=== PATIENT | female | born 2000 | race Caucasian/White ===

== ENCOUNTER 2022-01-06 11:50 | Observation (INO) ==
[2022-01-06] MEDS ORDERED: SODIUM CHLORIDE 0.9% 1000ML 1,000 ML IV ONE (12:28)
[2022-01-06] MEDS ORDERED: HYDROmorphone INJ 1 MG/ML SYRINGE IV STA ×3 (12:28→15:56)
[2022-01-06] MEDS ORDERED: ONDANSETRON INJ 2 MG/ML 2 ML VIAL IV STA (12:28)
--- NOTE | 2022-01-06 12:48 | Emergency Department Note ---
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 Patient notes she had been doing well up until about 3 to 4 weeks ago with gradually worsening abdominal pain in the last few days that was severe diffuse abdominal pain and vomiting. No recent imaging and given the amount of pain I did feel was indicated to get a CTA of the abdomen pelvis. Fortunately CT imaging is unremarkable. Laboratory work-up is negative as well. There is no evidence of inflammatory issue nor infection at this time. Do not see any evidence of sepsis pyelonephritis or other concerning findings. With a negative CTA I do not feel there is evidence of ischemia nor she requires emergent surgical intervention. She did require multiple rounds of IV narcotics initially to get her pain under control. I discussed the case with her surgeon at [place] Dr. Harrison via the phone at the patient's request who reviewed the case and the imaging with me. He suggests some bowel rest and possibly getting a HIDA scan if possible. Agreed with current management approach. Due to her level pain initially and her history I discussed with hospitalist for further management and they will bring her in for further monitoring. Patient is comfortable this plan. Did offer to call the patient's mother as she had apparently called the ER and talk to the nurse earlier though patient declines needing this to happen at this time. I made hospitalist aware of input of surgeon. Patient is stable and actually looks much per improved at time of hospitalization Prior Medical Record and Triage/Nursing Notes reviewed by Me Additional history obtained from surgeon Differentials:Appendicitis, ischemia, bleed, inflammatory bowel disease, urinary infection/pyelonephritis, aortic pathology, obstruction, renal colic, amongst other. Vital Signs: reviewed and remarkable for no significant abnormalities Interventions: dilaudid 1mg iv x 3, zofran 4mg iv, nss bolus Labs:Reviewed and remarkable for no significant abnormalities Imaging:ct angio abdomen/pelvis: no acute findings per radiology Consults:Dr Harrison [facility] surgeon Dr Chao [place] Hospitalist Plan: Disposition:Hospitalization. Condition: Good History of Present Illness: 21-year-old female arrives for evaluation of abdominal pain. Patient with a long history of abdominal issues resulting in multiple surgeries back home in [facility]. She notes this was primarily due to vascular issues due to nutcracker syndrome decreased blood flow to her bowel as well as some decreased blood flow return issues due to pelvic congestion. She is also in the last 2 years had movement of her left kidney to lower in the pelvis to help with blood flow as well. Notes over the last month gradually worsening diffuse abdominal pain rapidly worsening the last few days. Associate with nausea, vomiting, diarrhea. No fevers, chills, chest pain, shortness of breath, other concerning signs or symptoms. She does have near syncopal episodes which occur fairly regularly which have been going on for quite some time. Using Tylenol without much improvement. No falls, trauma, injuries. ROS: See above HPI for pertinent positives & negatives. A total of 10 systems reviewed and were otherwise negative. Past Medical History:Arterial and venous issues of the abdomen Past Surgical History:Multiple abdominal surgeries Family History:Noncontributory Social History:From [facility], [employer] student Home Medications:Venlafaxine Allergies:No known drug allergies Vitals:Blood Pressure: 137/82, Pulse 97, RR 18, T 36.6C, O2 96% on RA Physical Exam: GENERAL: Patient is uncomfortable appearing and in moderate distress. EYES: No scleral icterus, unremarkable pupils. ENT: Mucous membranes moist, no nasal congestion. NECK: No masses appreciated, nomeningismus, trachea is midline. RESPIRATORY: No dyspnea. Clear to auscultation and equal bilaterally. No wheeze, no rhonchi. CARDIOVASCULAR: Regular rate and rhythm.No murmurs, rubs, gallops appreciated. GASTROINTESTINAL: Midline vertical incision scar, diffuse TTP, + bowel sounds BACK: No midline tenderness, no CVA tenderness EXTREMITIES: Normal motion all extremities, no cyanosis, no edema. NEUROLOGIC: Alert and oriented, no acute motor or sensory deficits, no focal weakness, cranial nerves grossly intact. SKIN: No rash, no jaundice, no diaphoresis. PSYCH: Appropriate GCS: 15 ED Course: Times/Reassessments: Tachycardia consider amount of time to get patient finally comfortable after few hours patient is stable no distress looks well. Work-up is essentially benign. Her surgeon is on board with keeping her at this facility for hydration monitoring overnight and possible HIDA scan in the morning. Hospitalist and see if further Jose Angel Jarvis MD Past Med/Surg History Social History Feels Safe at Home: Yes Home Meds Home Medications Medication Instructions Recorded Confirmed penicillin V potassium 500 mg 500 mg PO DAILY 01/06/22 01/06/22 tablet Results & Data (ED) Vital Signs Vital Signs - 24 hr 01/06/22 11:56 01/06/22 14:13 01/06/22 16:09 Temperature 36.6 C Temperature Source Temporal Artery Scan Pulse Rate 97 H Pulse Rate [Right Apical] 59 L 73 Pulse Rhythm [Right Apical] Regular Regular Pulse Strength [Right Apical] Normal Respiratory Rate 18 16 20 Respiratory Effort / Characteristics Non-Labored Spontaneous Respiratory Depth Normal Respiratory Pattern Regular Blood Pressure 137/82 Blood Pressure [Right Arm] 129/77 136/88 Blood Pressure Mean 100 Blood Pressure Mean [Right Arm] 94 104 Blood Pressure Position [Right Arm] Sitting Pulse Oximetry 96 96 96 Oxygen Delivery Method Room Air Room Air Room Air Sepsis Recent Fever Within 48 Hours No Sepsis New/Unexplained Change in Mental Status No Sepsis Action Taken by Nursing No Action Required 01/06/22 18:00 01/06/22 18:30 Temperature Temperature Source Pulse Rate Pulse Rate [Right Apical] 73 83 Pulse Rhythm [Right Apical] Regular Regular Pulse Strength [Right Apical] Normal Normal Respiratory Rate 20 20 Respiratory Effort / Characteristics Non-Labored Spontaneous Non-Labored Spontaneous Respiratory Depth Normal Normal Respiratory Pattern Regular Regular Blood Pressure Blood Pressure [Right Arm] 132/79 123/70 Blood Pressure Mean Blood Pressure Mean [Right Arm] 96 87 Blood Pressure Position [Right Arm] Sitting Sitting Pulse Oximetry 97 97 Oxygen Delivery Method Room Air Room Air Sepsis Recent Fever Within 48 Hours Sepsis New/Unexplained Change in Mental Status Sepsis Action Taken by Nursing Laboratory Data Result diagrams: 01/06/22 12:35 01/06/22 12:35 Lab Results 01/06/22 01/06/22 01/06/22 Range/Units 12:35 12:35 12:35 WBC 6.18 (4.8-10.8) K/ul RBC 4.18 (3.93-5.22) M/uL Hgb 12.8 (12.0-16.0) g/dl Hct 38.7 (34.1-44.9) % MCV 92.6 (80.0-100.0) fL MCH 30.6 (25.0-34.0) pg MCHC 33.1 (32.0-36.0) g/dL RDW Std Deviation 39.7 (36.4-46.3) fL RDW Coeff of Abad 11.7 (11.5-14.5) % Plt Count 268 (130-400) K/uL MPV 10.4 (9.4-12.3) fL Immature Gran % (Auto) 0.3 % Neut % (Auto) 66.4 % Lymph % (Auto) 22.8 % [place] % (Auto) 7.6 % Eos % (Auto) 2.1 % Baso % (Auto) 0.8 % Neut # (Auto) 4.10 (1.4-6.5) K/uL Lymph # (Auto) 1.41 (1.2-3.4) K/uL [place] # (Auto) 0.47 (0.24-0.82) K/uL Eos # (Auto) 0.13 (0-0.50) K/uL Baso # (Auto) 0.05 (0-0.2) K/uL Immature Gran # (Auto) 0.02 (0.00-0.02) K/uL ESR (0-20) mm/hr Sodium 138 (136-145) mmol/L Potassium 4.1 (3.5-5.1) mmol/L Chloride 105 (98-107) mmol/L Carbon Dioxide 29 (21-32) mmol/L Anion Gap 4 (3-11) BUN 17 (6-23) mg/dl Creatinine 0.79 (0.6-1.2) mg/dl Est Cr Clr Drug Dosing Not Reportable Est GFR ( Amer) 125.8 ml/min Est GFR (Non-Af Amer) 108.5 ml/min BUN/Creatinine Ratio 21.5 H (10-20) Glucose 100 H (70-99(Fasting)) mg/dl Lactate 0.8 (0.4-2.0) mmol/L Calcium 9.4 (8.5-10.1) mg/dl Magnesium 2.1 (1.7-2.4) mg/dl Total Bilirubin 0.3 (0.2-1.0) mg/dl Direct Bilirubin 0.0 (0-0.2) mg/dl AST 23 (13-39) U/L ALT 26 (7-52) U/L Alkaline Phosphatase 59 (34-104) U/L Total Creatine Kinase 203 H (26-192) U/L C-Reactive Protein (0-0.5) mg/dl Total Protein 7.0 (6.0-8.3) gm/dl Albumin 4.5 (3.4-5.0) gm/dl Lipase 21 (11-82) U/L Urine Color Urine Appearance (Clear) Urine pH (4.5-7.5) Ur Specific [place] (1.000-1.030) Urine Protein (Negative) Urine Glucose (UA) (Negative) Urine Ketones (Negative) Urine Blood (Negative) Urine Nitrite (Negative) Urine Bilirubin (Negative) Urine Urobilinogen (Negative) Ur Leukocyte Esterase (Negative) Urine Test (Negative) SARS-CoV-2, RNA, NAAT (NEGATIVE) 01/06/22 01/06/22 01/06/22 Range/Units 12:35 12:35 12:40 WBC (4.8-10.8) K/ul RBC (3.93-5.22) M/uL Hgb (12.0-16.0) g/dl Hct (34.1-44.9) % MCV (80.0-100.0) fL MCH (25.0-34.0) pg MCHC (32.0-36.0) g/dL RDW Std Deviation (36.4-46.3) fL RDW Coeff of Abad (11.5-14.5) % Plt Count (130-400) K/uL MPV (9.4-12.3) fL Immature Gran % (Auto) % Neut % (Auto) % Lymph % (Auto) % [place] % (Auto) % Eos % (Auto) % Baso % (Auto) % Neut # (Auto) (1.4-6.5) K/uL Lymph # (Auto) (1.2-3.4) K/uL [place] # (Auto) (0.24-0.82) K/uL Eos # (Auto) (0-0.50) K/uL Baso # (Auto) (0-0.2) K/uL Immature Gran # (Auto) (0.00-0.02) K/uL ESR 8 (0-20) mm/hr Sodium (136-145) mmol/L Potassium (3.5-5.1) mmol/L Chloride (98-107) mmol/L Carbon Dioxide (21-32) mmol/L Anion Gap (3-11) BUN (6-23) mg/dl Creatinine (0.6-1.2) mg/dl Est Cr Clr Drug Dosing Est GFR ( Amer) ml/min Est GFR (Non-Af Amer) ml/min BUN/Creatinine Ratio (10-20) Glucose (70-99(Fasting)) mg/dl Lactate (0.4-2.0) mmol/L Calcium (8.5-10.1) mg/dl Magnesium (1.7-2.4) mg/dl Total Bilirubin (0.2-1.0) mg/dl Direct Bilirubin (0-0.2) mg/dl AST (13-39) U/L ALT (7-52) U/L Alkaline Phosphatase (34-104) U/L Total Creatine Kinase (26-192) U/L C-Reactive Protein < 0.50 (0-0.5) mg/dl Total Protein (6.0-8.3) gm/dl Albumin (3.4-5.0) gm/dl Lipase (11-82) U/L Urine Color Yellow Urine Appearance Clear (Clear) Urine pH 7.0 (4.5-7.5) Ur Specific Hol[place] 1.026 (1.000-1.030) Urine Protein Negative (Negative) Urine Glucose (UA) Negative (Negative) Urine Ketones Negative (Negative) Urine Blood Negative (Negative) Urine Nitrite Negative (Negative) Urine Bilirubin Negative (Negative) Urine Urobilinogen Negative (Negative) Ur Leukocyte Esterase Negative (Negative) Urine Test (Negative) SARS-CoV-2, RNA, NAAT (NEGATIVE) 01/06/22 01/06/22 Range/Units 12:40 18:20 WBC (4.8-10.8) K/ul RBC (3.93-5.22) M/uL Hgb (12.0-16.0) g/dl Hct (34.1-44.9) % MCV (80.0-100.0) fL MCH (25.0-34.0) pg MCHC (32.0-36.0) g/dL RDW Std Deviation (36.4-46.3) fL RDW Coeff of Abad (11.5-14.5) % Plt Count (130-400) K/uL MPV (9.4-12.3) fL Immature Gran % (Auto) % Neut % (Auto) % Lymph % (Auto) % [place] % (Auto) % Eos % (Auto) % Baso % (Auto) % Neut # (Auto) (1.4-6.5) K/uL Lymph # (Auto) (1.2-3.4) K/uL [place] # (Auto) (0.24-0.82) K/uL Eos # (Auto) (0-0.50) K/uL Baso # (Auto) (0-0.2) K/uL Immature Gran # (Auto) (0.00-0.02) K/uL ESR (0-20) mm/hr Sodium (136-145) mmol/L Potassium (3.5-5.1) mmol/L Chloride (98-107) mmol/L Carbon Dioxide (21-32) mmol/L Anion Gap (3-11) BUN (6-23) mg/dl Creatinine (0.6-1.2) mg/dl Est Cr Clr Drug Dosing Est GFR ( Amer) ml/min Est GFR (Non-Af Amer) ml/min BUN/Creatinine Ratio (10-20) Glucose (70-99(Fasting)) mg/dl Lactate (0.4-2.0) mmol/L Calcium (8.5-10.1) mg/dl Magnesium (1.7-2.4) mg/dl Total Bilirubin (0.2-1.0) mg/dl Direct Bilirubin (0-0.2) mg/dl AST (13-39) U/L ALT (7-52) U/L Alkaline Phosphatase (34-104) U/L Total Creatine Kinase (26-192) U/L C-Reactive Protein (0-0.5) mg/dl Total Protein (6.0-8.3) gm/dl Albumin (3.4-5.0) gm/dl Lipase (11-82) U/L Urine Color Urine Appearance (Clear) Urine pH (4.5-7.5) Ur Specific [place] (1.000-1.030) Urine Protein (Negative) Urine Glucose (UA) (Negative) Urine Ketones (Negative) Urine Blood (Negative) Urine Nitrite (Negative) Urine Bilirubin (Negative) Urine Urobilinogen (Negative) Ur Leukocyte Esterase (Negative) Urine Test Negative (Negative) SARS-CoV-2, RNA, NAAT NEGATIVE (NEGATIVE) Administered Medications Discontinued Medications Dicyclomine HCl (Dicyclomine Hcl 10 Mg Cap) 10 mg PO NOW ONE Stop: 01/06/22 16:41 Last Admin: 01/06/22 16:49 Dose: 10 mg Documented By: PAKO Hydromorphone HCl (Hydromorphone Inj 1 Mg/Ml Syringe) 1 mg IV NOW STA Stop: 01/06/22 12:29 Last Admin: 01/06/22 12:53 Dose: 1 mg Documented By: HAYDE Hydromorphone HCl (Hydromorphone Inj 1 Mg/Ml Syringe) 1 mg IV NOW STA Stop: 01/06/22 13:51 Last Admin: 01/06/22 13:58 Dose: 1 mg Documented By: HUMBERTO Hydromorphone HCl (Hydromorphone Inj 1 Mg/Ml Syringe) 1 mg IV NOW STA Stop: 01/06/22 15:57 Last Admin: 01/06/22 16:02 Dose: 1 mg Documented By: PAKO Sodium Chloride (Nss 1000ml) 1,000 mls @ 999 mls/hr IV .Q1H1M ONE Stop: 01/06/22 13:28 Last Infusion: 01/06/22 13:54 Dose: 0 mls/hr Documented By: Admin: 01/06/22 12:53 Dose: 999 mls/hr Documented By: HAYDE Ioversol (Optiray 320 500ml) 115 ml IV ONCE ONE Stop: 01/06/22 13:45 Last Admin: 01/06/22 13:44 Dose: 115 ml Documented By: MARIANNA Ketorolac Tromethamine (Ketorolac Tromethamine 15 Mg/Ml Vial) 15 mg IV NOW ONE Stop: 01/06/22 18:39 Last Admin: 01/06/22 18:50 Dose: 15 mg Documented By: PAKO Ondansetron HCl (Ondansetron Inj 2 Mg/Ml 2 Ml Vial) 4 mg IV NOW STA Stop: 01/06/22 12:29 Last Admin: 01/06/22 12:54 Dose: 4 mg Documented By: HAYDE Imaging Data Radiologist's Impression: Abdomen/Pelvis CTA 01/06/22 12:28 CT angio abdomen pelvis w con CLINICAL HISTORY: diffuse pain, h/o surg x 4, arterial issues TECHNIQUE: Multidetector row helical CT of the abdomen and pelvis was performed, following intravenous administration of iodinated contrast. No oral contrast was administered. Automated dose lowering techniques and/or adjustment according to patient size were utilized for this exam. Coronal and sagittal reformations were obtained. MIP and 3D volume rendered reconstructions were obtained. CT DOSE: 308.73 mGy.cm Comparison: None available at the time of this dictation. FINDINGS: Lower chest: No acute abnormality Liver: Unremarkable. No focal lesions are seen. Gallbladder and biliary tree: No calcified gallstones. Normal caliber wall. No intra- or extrahepatic biliary ductal dilation. Pancreas: Unremarkable, no focal lesions. Spleen: Unremarkable. Adrenals: Unremarkable. Kidneys and ureters: Focal atrophic changes are seen in the left kidney inferior pole. Bladder: Unremarkable. Reproductive organs: Unremarkable. Bowel: Unremarkable appearance of the bowel. The appendix is normal. Lymph nodes Retroperitoneal: Unremarkable. Pelvic: Unremarkable. Mesenteric: Subcentimeter lymph nodes are noted. Peritoneum: Normal. Abdominal wall: Unremarkable. Bones: Unremarkable. CT angiogram: The abdominal aortic contours appear intact without evidence of aneurysmal dilatation and/or dissection. Surgical clips are seen about the upper abdominal aorta. The origins of the celiac axis, superior mesenteric, inferior mesenteric and bilateral renal arteries are patent. IMPRESSION: 1. Postsurgical changes are seen in the aorta compatible with history of vascular surgery to correct nutcracker syndrome. No acute abnormalities are seen. The great vessels are patent. 2. Chronic changes of left kidney inferior pole atrophy in this patient with history of left renal reimplantation. ACT 112: Negative or not required by law. Electronically signed by: Orlando Merchant M.D. 01/06/2022 2:05 PM Discharge Plan Visit Data Chief Complaint: Abdominal Pain Stated Complaint: SEVERE ABD PAIN,NAUSEA,RAPID GASTRIC EMPTYING ED Provider: Simona,Jose Angel F Discharge Problem: Intractable generalized abdominal pain, Vomiting Forms Stand Alone Forms: [facility] Prescriptions Prescriptions: No Action penicillin V potassium 500 mg tablet 500 mg PO DAILY Referrals Referrals: PCP,NO [Physician] - : Vomiting Qualifiers: Vomiting type: unspecified Nausea presence: with nausea Qualified Code(s): R11.2 - Nausea with vomiting, unspecified
[2022-01-06 12:50] LABS: Basophils # (auto) 0.05 K/uL (0-0.2); Basophils % (auto) 0.8 %; Eosinophils # (auto) 0.13 K/uL (0-0.50); Eosinophils % (auto) 2.1 %; Hematocrit (blood only) 38.7 % (34.1-44.9); Hemoglobin 12.8 g/dl (12.0-16.0); Immature Granulocytes # (auto) 0.02 K/uL (0.00-0.02); Immature Granulocytes % (auto) 0.3 %; Lymphocytes # (auto) 1.41 K/uL (1.2-3.4); Lymphocytes % (auto) 22.8 %; Mean Corpuscular Hemoglobin 30.6 pg (25.0-34.0); Mean Corpuscular Hgb Conc 33.1 g/dL (32.0-36.0); Mean Corpuscular Volume 92.6 fL (80.0-100.0); Mean Platelet Volume 10.4 fL (9.4-12.3); Monocytes # (auto) 0.47 K/uL (0.24-0.82); Monocytes % (auto) 7.6 %; Neutrophils % (auto) 66.4 %; Platelet Count 268 K/uL (130-400); RDW Coefficient of Variation 11.7 % (11.5-14.5); RDW Standard Deviation 39.7 fL (36.4-46.3); Red Blood Count 4.18 M/uL (3.93-5.22); White Blood Count 6.18 K/ul (4.8-10.8)
[2022-01-06 12:55] LABS: Appearance Urine Clear (Clear); Bilirubin Urine Negative (Negative); Blood Urine Negative (Negative); Color Urine Yellow; Glucose Urine UA Negative (Negative); Ketones Urine Negative (Negative); Leukocyte Esterase Urine Negative (Negative); Nitrite Urine Negative (Negative); Protein Urine Negative (Negative); Specific Gravity Urine 1.026 (1.000-1.030); Urobilinogen Urine Negative (Negative)
[2022-01-06 12:57] LABS: Pregnancy Test, Urine Negative (Negative)
[2022-01-06 13:11] LABS: Alanine Aminotransferase 26 U/L (7-52); Albumin Level 4.5 gm/dl (3.4-5.0); Alkaline Phosphatase 59 U/L (34-104); Anion Gap 4 (3-11); Aspartate Aminotransferase 23 U/L (13-39); BUN Creatinine Ratio 21.5 (10-20); Bilirubin,Total 0.3 mg/dl (0.2-1.0); Blood Urea Nitrogen 17 mg/dl (6-23); Calcium 9.4 mg/dl (8.5-10.1); Carbon Dioxide 29 mmol/L (21-32); Chloride 105 mmol/L (98-107); Creatine Kinase 203 U/L (26-192); Est GFR (African American) 125.8 ml/min; Est GFR (Non-African American) 108.5 ml/min; Glucose 100 mg/dl (70-99(Fasting)); Lipase 21 U/L (11-82); Magnesium 2.1 mg/dl (1.7-2.4); Potassium 4.1 mmol/L (3.5-5.1); Sodium 138 mmol/L (136-145)
[2022-01-06] MEDS ORDERED: OPTIRAY 320 500ml IV ONE (13:44)
--- NOTE | 2022-01-06 14:06 | CT Scan Report ---
CT angio abdomen pelvis w con CLINICAL HISTORY: diffuse pain, h/o surg x 4, arterial issues TECHNIQUE: Multidetector row helical CT of the abdomen and pelvis was performed, following intravenou s administration of iodinated contrast. No oral contrast was administered. Automated dose lowering te chniques and/or adjustment according to patient size were utilized for this exam. Coronal and sagitta l reformations were obtained. MIP and 3D volume rendered reconstructions were obtained. CT DOSE: 308.73 mGy.cm Comparison: None available at the time of this dictation. FINDINGS: Lower chest: No acute abnormality Liver: Unremarkable. No focal lesions are seen. Gallbladder and biliary tree: No calcified gallstones. Normal caliber wall. No intra- or extrahepatic biliary ductal dilation. Pancreas: Unremarkable, no focal lesions. Spleen: Unremarkable. Adrenals: Unremarkable. Kidneys and ureters: Focal atrophic changes are seen in the left kidney inferior pole. Bladder: Unremarkable. Reproductive organs: Unremarkable. Bowel: Unremarkable appearance of the bowel. The appendix is normal. Lymph nodes Retroperitoneal: Unremarkable. Pelvic: Unremarkable. Mesenteric: Subcentimeter lymph nodes are noted. Peritoneum: Normal. Abdominal wall: Unremarkable. Bones: Unremarkable. CT angiogram: The abdominal aortic contours appear intact without evidence of aneurysmal dilatation a nd/or dissection. Surgical clips are seen about the upper abdominal aorta. The origins of the celiac axis, superior mesenteric, inferior mesenteric and bilateral renal arteries are patent. IMPRESSION: 1. Postsurgical changes are seen in the aorta compatible with history of vascular surgery to correct nutcracker syndrome. No acute abnormalities are seen. The great vessels are patent. 2. Chronic changes of left kidney inferior pole atrophy in this patient with history of left renal r eimplantation. ACT 112: Negative or not required by law. Electronically signed by: Orlando Merchant M.D. 01/06/2022 2:05 PM
[2022-01-06] MEDS ORDERED: DICYCLOMINE HCL 10 MG CAP PO ONE (16:40)
[2022-01-06] MEDS ORDERED: KETOROLAC TROMETHAMINE 15 MG/ML VIAL IV ONE (18:38)
[2022-01-06] MEDS ORDERED: POLYETHYLENE (MIRALAX) 17 GM PACK PO PRN (18:39)
[2022-01-06] MEDS ORDERED: ACETAMINOPHEN 325 MG TAB PO PRN (18:39)
[2022-01-06] MEDS ORDERED: ONDANSETRON INJ 2 MG/ML 2 ML VIAL IV PRN (18:39)
--- NOTE | 2022-01-06 19:00 | History & Physical Report ---
Date of Service January 06, 2022 Assessment & Plan (1) Intractable generalized abdominal pain: Plan: 21yo Female with PMH Nutcracker syndrome s/p surgeryx4, median arcuate ligament syndrome, endometriosis, pelvic and ovarian congestion (improved after nutcracker surgery), POTS, anemia, and neutropenia here for 1 month of worsening abd pain nausea and diarrhea Abdominal Pain -ongoing 1 month with nausea diarrhea, worse standing up -CBC, CMP unremarkable -ESR lactate CRP lipase negative -Creatine Kinase 203 -UA unremarkable -CTA A/P: Postsurgical changes are seen in the aorta compatible with history of vascular surgery to correct nutcracker syndrome. No acute abnormalities are seen. The great vessels are patent. Chronic changes of left kidney inferior pole atrophy in this patient with history of left renal reimplantation. Discussed case with Radiologist Dr. Gonsalez, illiac vein appears normal without compression, ovaries normal appearing, CT not a great study for endometriosis though US may not provide much more benefit, spleen appearance is side effect of contrast. If symptoms not improved by tomorrow can consider repeat CT A/P with oral and IV contrast Imaging looked over briefly by surgeon in [place] over phone, largely unremarkable, concern change in diet from organic to college food may have caused symptoms -Patient made NPO midnight Placed GI consult, appreciate recommendations (ie. rule out SBO, dietary causes of abd pain, mesenteric vessel involvement) -consider pelvic US to evaluate endometriosis consider STOCK FITTER consult for endometriosis -consider repeat CT A/P w and w/o contrast oral and IV in afternoon if symptoms not improved -Ordered tylenol for mild pain, IV toradol for moderate pain, IV dilaudid for severe pain -ordered D-dimer, fecal occult blood -Repeat labs CBC CMP creatine Kinase in am Ddx: SBO, endometriosis, venous compression,median arcuate ligament syndrome, mesenteric ischemia/mesenteric vein thrombosis (2) Vomiting: Plan: PRN zofran, compazine (3) Diarrhea: Plan: Patient made NPO midnight History of Present Illness Chief Complaint: Abdominal Pain Primary Care Provider: [facility] [place] 21yo Female with PMH Nutcracker syndrome s/p surgeryx4, median arcuate ligament syndrome, endometriosis, pelvic and ovarian congestion (improved after nutcracker surgery), POTS, anemia, and neutropenia here for 1 month of worsening abd pain nausea and diarrhea. Patient is from [place], follows with her PCP in [facility] and surgeon in [place]. She states 1 month ago her symptoms began and have been gradually worsening. She cannot recall any inciting event illness injury or medication change. Her abdominal pain comes and goes throughout the day, described as sharp stabbing pain worse when standing up, sometimes makes it painful to breath. Describes sometimes fatty food makes her pain worse and sometimes it does not. Patient has had irregular periods for quite a while now. Her last surgery was last year December for her Nutcracker surgery. She states her current pain feels similar to previous pain which improved after surgery. 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 States her appetite comes and goes, denies any difficulty controlling bowels, no loss of strength or sensation, no fever or swelling noted. 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 Patient's chronic medications include venlafaxin, zofran and compazine PRN for nausea, nausea patches, and PRN ibuprofen. Denies smoking. Drinks alcohol 1-2 drinks per month, coffee 1-2 cups daily, denies illicit drugs. Allergies Allergy/AdvReac Type Severity Reaction Status Date / Time iv iron AdvReac Mild Hives Uncoded 01/06/22 21:12 Home Medications Medication Instructions Recorded Confirmed Type penicillin V potassium 500 mg 500 mg PO DAILY 01/06/22 01/06/22 History tablet Past Med/Surg History Medical History (Updated 01/06/22 @ 19:18 by Caitlin Lott DO) Anemia Endometriosis Median arcuate ligament syndrome Neutropenia Nutcracker phenomenon of renal vein Pelvic congestion syndrome POTS (postural orthostatic tachycardia syndrome) Social History Smoking Status: Never smoker Hx Alcohol Use: Yes Alcohol type: other Hx Substance Use: No Preferred Language: Malay Communication Ability: Effective Utility Assembler Required: No Beliefs That Will Affect Care: None Current Living Situation: Other Current Living Situation Comment: [facility] Other Information That Helps Us Care for You: No Feels Safe at Home: Yes Safety Concerns: Feels Safe At This Time Assistive Devices: None Review of Systems Review of Systems: Positive abd pain diarrhea nausea Negative fever chills Negative headache dizziness Negative chest pain palpitations SOB Negative constipation Negative numbness tingling rash swelling Physical Exam Constitutional: WD/WN, vitals as above Eyes: PERRL, conjunctivae normal, anicteric sclerae Neck: trachea midline, no thyromegaly Respiratory: normal respiratory effort, lungs clear to auscultation Cardiovascular: RRR, no murmur, no edema Chest (Breasts): Chest: normal inspection of chest Gastrointestinal (Abdomen): Inspection/Auscultation: abdomen normal to inspection and + abdominal surgical scar Percussion/Palpation: + abdomen tender (at umbilicus and LLQ) Skin: no rashes, warm and dry Results & Data Results & Data ([facility]) Vital Signs (Past 12 Hours) Vital Signs Temp Pulse Pulse Resp BP BP Pulse Ox 01/06/22 18:30 83 20 123/70 97 01/06/22 18:00 73 20 132/79 97 01/06/22 16:09 73 20 136/88 96 01/06/22 14:13 59 L 16 129/77 96 01/06/22 11:56 36.6 C 97 H 18 137/82 96 O2 Del Method 01/06/22 18:30 Room Air 01/06/22 18:00 Room Air 01/06/22 16:09 Room Air 01/06/22 14:13 Room Air 01/06/22 11:56 Room Air Laboratory Results Laboratory Results WBC 6.18 K/ul (4.8-10.8) 01/06/22 12:35 RBC 4.18 M/uL (3.93-5.22) 01/06/22 12:35 Hgb 12.8 g/dl (12.0-16.0) 01/06/22 12:35 Hct 38.7 % (34.1-44.9) 01/06/22 12:35 MCV 92.6 fL (80.0-100.0) 01/06/22 12:35 MCH 30.6 pg (25.0-34.0) 01/06/22 12:35 MCHC 33.1 g/dL (32.0-36.0) 01/06/22 12:35 RDW Std Deviation 39.7 fL (36.4-46.3) 01/06/22 12:35 RDW Coeff of Abad 11.7 % (11.5-14.5) 01/06/22 12:35 Plt Count 268 K/uL (130-400) 01/06/22 12:35 MPV 10.4 fL (9.4-12.3) 01/06/22 12:35 Immature Gran % (Auto) 0.3 % 01/06/22 12:35 Neut % (Auto) 66.4 % 01/06/22 12:35 Lymph % (Auto) 22.8 % 01/06/22 12:35 [place] % (Auto) 7.6 % 01/06/22 12:35 Eos % (Auto) 2.1 % 01/06/22 12:35 Baso % (Auto) 0.8 % 01/06/22 12:35 Neut # (Auto) 4.10 K/uL (1.4-6.5) 01/06/22 12:35 Lymph # (Auto) 1.41 K/uL (1.2-3.4) 01/06/22 12:35 [place] # (Auto) 0.47 K/uL (0.24-0.82) 01/06/22 12:35 Eos # (Auto) 0.13 K/uL (0-0.50) 01/06/22 12:35 Baso # (Auto) 0.05 K/uL (0-0.2) 01/06/22 12:35 Immature Gran # (Auto) 0.02 K/uL (0.00-0.02) 01/06/22 12:35 ESR 8 mm/hr (0-20) 01/06/22 12:35 Sodium 138 mmol/L (136-145) 01/06/22 12:35 Potassium 4.1 mmol/L (3.5-5.1) 01/06/22 12:35 Chloride 105 mmol/L (98-107) 01/06/22 12:35 Carbon Dioxide 29 mmol/L (21-32) 01/06/22 12:35 Anion Gap 4 (3-11) 01/06/22 12:35 BUN 17 mg/dl (6-23) 01/06/22 12:35 Creatinine 0.79 mg/dl (0.6-1.2) 01/06/22 12:35 Est Cr Clr Drug Dosing Not Reportable 01/06/22 12:35 Est GFR ( Amer) 125.8 ml/min 01/06/22 12:35 Est GFR (Non-Af Amer) 108.5 ml/min 01/06/22 12:35 BUN/Creatinine Ratio 21.5 (10-20) H 01/06/22 12:35 Glucose 100 mg/dl (70-99(Fasting)) H 01/06/22 12:35 Lactate 0.8 mmol/L (0.4-2.0) 01/06/22 12:35 Calcium 9.4 mg/dl (8.5-10.1) 01/06/22 12:35 Magnesium 2.1 mg/dl (1.7-2.4) 01/06/22 12:35 Total Bilirubin 0.3 mg/dl (0.2-1.0) 01/06/22 12:35 Direct Bilirubin 0.0 mg/dl (0-0.2) 01/06/22 12:35 AST 23 U/L (13-39) 01/06/22 12:35 ALT 26 U/L (7-52) 01/06/22 12:35 Alkaline Phosphatase 59 U/L (34-104) 01/06/22 12:35 Total Creatine Kinase 203 U/L (26-192) H 01/06/22 12:35 C-Reactive Protein < 0.50 mg/dl (0-0.5) 01/06/22 12:35 Total Protein 7.0 gm/dl (6.0-8.3) 01/06/22 12:35 Albumin 4.5 gm/dl (3.4-5.0) 01/06/22 12:35 Lipase 21 U/L (11-82) 01/06/22 12:35 Urine Color Yellow 01/06/22 12:40 Urine Appearance Clear (Clear) 01/06/22 12:40 Urine pH 7.0 (4.5-7.5) 01/06/22 12:40 Ur Specific [place] 1.026 (1.000-1.030) 01/06/22 12:40 Urine Protein Negative (Negative) 01/06/22 12:40 Urine Glucose (UA) Negative (Negative) 01/06/22 12:40 Urine Ketones Negative (Negative) 01/06/22 12:40 Urine Blood Negative (Negative) 01/06/22 12:40 Urine Nitrite Negative (Negative) 01/06/22 12:40 Urine Bilirubin Negative (Negative) 01/06/22 12:40 Urine Urobilinogen Negative (Negative) 01/06/22 12:40 Ur Leukocyte Esterase Negative (Negative) 01/06/22 12:40 Urine Test Negative (Negative) 01/06/22 12:40 SARS-CoV-2, RNA, NAAT NEGATIVE (NEGATIVE) 01/06/22 18:20 Impressions Abdomen/Pelvis CTA 01/06/22 12:28 CT angio abdomen pelvis w con CLINICAL HISTORY: diffuse pain, h/o surg x 4, arterial issues TECHNIQUE: Multidetector row helical CT of the abdomen and pelvis was performed, following intravenous administration of iodinated contrast. No oral contrast was administered. Automated dose lowering techniques and/or adjustment according to patient size were utilized for this exam. Coronal and sagittal reformations were obtained. MIP and 3D volume rendered reconstructions were obtained. CT DOSE: 308.73 mGy.cm Comparison: None available at the time of this dictation. FINDINGS: Lower chest: No acute abnormality Liver: Unremarkable. No focal lesions are seen. Gallbladder and biliary tree: No calcified gallstones. Normal caliber wall. No intra- or extrahepatic biliary ductal dilation. Pancreas: Unremarkable, no focal lesions. Spleen: Unremarkable. Adrenals: Unremarkable. Kidneys and ureters: Focal atrophic changes are seen in the left kidney inferior pole. Bladder: Unremarkable. Reproductive organs: Unremarkable. Bowel: Unremarkable appearance of the bowel. The appendix is normal. Lymph nodes Retroperitoneal: Unremarkable. Pelvic: Unremarkable. Mesenteric: Subcentimeter lymph nodes are noted. Peritoneum: Normal. Abdominal wall: Unremarkable. Bones: Unremarkable. CT angiogram: The abdominal aortic contours appear intact without evidence of aneurysmal dilatation and/or dissection. Surgical clips are seen about the upper abdominal aorta. The origins of the celiac axis, superior mesenteric, inferior mesenteric and bilateral renal arteries are patent. IMPRESSION: 1. Postsurgical changes are seen in the aorta compatible with history of vascular surgery to correct nutcracker syndrome. No acute abnormalities are seen. The great vessels are patent. 2. Chronic changes of left kidney inferior pole atrophy in this patient with history of left renal reimplantation. ACT 112: Negative or not required by law. Electronically signed by: Orlando Merchant M.D. 01/06/2022 2:05 PM Medications Administered Current Inpatient Medications Acetaminophen (Acetaminophen 325 Mg Tab) 650 mg PO Q4H PRN PRN Reason: pain/fever Stop: 02/05/22 18:38 Ondansetron HCl (Ondansetron Inj 2 Mg/Ml 2 Ml Vial) 4 mg IV Q6H PRN PRN Reason: Nausea Stop: 02/05/22 18:38 Polyethylene Glycol (Polyethylene (Miralax) 17 Gm Pack) 17 gm PO DAILY PRN PRN Reason: Constipation Stop: 02/05/22 18:38 Supervising Physician Co-Signing Physician Notes I supervised Caitlin Lott DO on this admission. I interviewed and examined the patient independently of her. The plan is as written in the note except for any following changes/exceptions: None 21yo F w/ hx of nutcracker syndrome and left iliac vein compression who presents with ~6 weeks of left-sided abdominal pain which also at times is generalized. Mostly notes the pain worsening with positional changes (ie standing up). Otherwise, also has some chronic abdominal pain with dumping syndrome, but she feels this is different. Some nausea, but no emesis. Has a complex anatomic hx with surgery for left renal re-implantation of vasculature due to the nutcracker syndrome. ER physician spoke with her surgeon in [place] who does see any issues on CT. Will reach out to our radiology to discuss the findings and consider further imaging as warranted. Resident Activity Tracking Resident Involvement: Resident Care Provided Care Provided: Adult Hospital Medicine (1) Vomiting Nausea presence: with nausea Vomiting type: unspecified Qualified Code(s): R11.2 - Nausea with vomiting, unspecified
[2022-01-06] MEDS ORDERED: KETOROLAC TROMETHAMINE 15 MG/ML VIAL IV PRN (20:01)
[2022-01-06] MEDS: Patient's ALLERGY Info needs ENTERED SCH ×2 (20:26→21:24)
[2022-01-06] MEDS: HYDROmorphone INJ 0.5 MG/0.5 ML SYR IV PRN (21:33)
[2022-01-06 21:43] LABS: D Dimer 240 ug/L FEU (0-500)
[2022-01-06] MEDS: PROCHLORPERAZINE MALEATE 5 MG TAB PO SCH (23:36)
[2022-01-07] MEDS: PROCHLORPERAZINE MALEATE 5 MG TAB PO SCH ×4 (05:47→23:55)
[2022-01-07 06:21] LABS: Hematocrit (blood only) 37.5 % (34.1-44.9); Hemoglobin 12.5 g/dl (12.0-16.0); Mean Corpuscular Hemoglobin 31.1 pg (25.0-34.0); Mean Corpuscular Hgb Conc 33.3 g/dL (32.0-36.0); Mean Corpuscular Volume 93.3 fL (80.0-100.0); Mean Platelet Volume 10.4 fL (9.4-12.3); Platelet Count 257 K/uL (130-400); RDW Coefficient of Variation 11.6 % (11.5-14.5); RDW Standard Deviation 39.6 fL (36.4-46.3); Red Blood Count 4.02 M/uL (3.93-5.22); White Blood Count 6.14 K/ul (4.8-10.8)
[2022-01-07 06:49] LABS: Albumin Globulin Ratio 1.7 (0.9-2); BUN Creatinine Ratio 18.5 (10-20); Bilirubin,Total 0.4 mg/dl (0.2-1.0); Calcium 8.8 mg/dl (8.5-10.1); Creatinine Clr Calc Pharmacy 100.4 ml/min; Est GFR (Non-African American) 105.3 ml/min; Globulin 2.3 gm/dl (2.5-4.0); Total Protein 6.3 gm/dl (6.0-8.3)
--- NOTE | 2022-01-07 08:15 | Hospitalist Progress Note ---
Date of Service January 07, 2022 Assessment & Plan (1) Intractable generalized abdominal pain: Plan: - Possibly may have adhesive disease secondary to multiple abdominal surgeries - Patient's surgeon in [place] suggested a HIDA (having U/S and HIDA tomorrow) - GI recommended to ADAT - Currently on clear liquid and can ADAT to low fat, will need to be NPO for 6 hours prior to U/S RUQ with HIDA tomorrow - GI ordered a trial of Bentyl (2) Diarrhea: Plan: - Patient likely has a component of IBS-D - GI ordered a trial of Bentyl - Monitor Bowels, if having frequent diarrhea could get stool studies (per patient no BM since admission) (3) Nausea alone: Plan: - Zofran as needed Admission and Anticipated Discharge Date Admission Date: January 06, 2022 Subjective 21yo Female with PMH Nutcracker syndrome s/p median cruciate ligament surgery x 2 and endometrial surgery x 1 in [place] and then a left autologous renal transplant in [place], pelvic and ovarian congestion (improved after nutcracker surgery), POTS, history of anemia and neutropenia (normal CBC currently) who presented to the ER with complaints of 1-2 months of worsening abdominal pain, nausea and diarrhea. The ER physician discussed the case with her surgeon at [place] - Dr Harrison via the phone at patient's request. He suggested bowel rest and possibly getting a HIDA scan if possible. Patient is a freshman here at [employer] and has been here for the past 2 months. She tells me that while at home in [facility] she was following an organic healthy diet and since her she is eating campus food. She states she has been having upper abdominal sharp stabbing pains worse after eating and worse after eating fatty foods. She denies any radiation of the pain. She admits to associated nausea but denies any vomiting. She tells me she has also been having loose brown stools for the past 2 months. She denies any hematochezia, melena or BRB [place]. She denies any ill contacts or anyone else having similar sxs. She has had no bowel movement since being here in the hospital. Patient tells me that she does from time to time have diarrhea and it will resolve on its own. Patient was evaluated in the ER and labs revealed a normal CBC, CMP, and U/A. CTA revealed post surgical changes are seen in the aorta compatible with history of vascular surgery to correct nutcracker syndrome. No acute abnormalities. The great vessels are patent. Full CTA report below. GI was consulted and suggested to ADAT, and a trial of Bentyl for possible IBS - D and possible adhesive disease. Review of Systems Review of Systems: Patient complains of diarrhea, abdominal pain and nausea All other ROS negative unless stated in the History Physical Exam Constitutional: WD/WN, vitals as above Patient was sleeping and awoke to her name Eyes: PERRL, conjunctivae normal, anicteric sclerae ENMT: external ear and nose normal, oropharynx normal Neck: trachea midline, no thyromegaly Respiratory: normal respiratory effort, lungs clear to auscultation Cardiovascular: RRR, no murmur, no edema Gastrointestinal (Abdomen): + BS, soft and mild tender to palpation epigastric area and suprapubic area No R/R/G No Hepatosplenomegaly old healed midline surgical scar Neurologic: PERRL, EOMI, accommodation nl, no face palsy, no dysarthria Psychiatric: A+Ox3, euthymic affect Results & Data Results & Data ([facility]) Vital Signs (Past 12 Hours) Vital Signs Temp Pulse Pulse Resp BP Pulse Ox O2 Del Method 01/07/22 07:11 37.1 C 66 16 90/55 L 96 Room Air 01/06/22 23:05 36.6 C 68 18 107/73 92 Laboratory Results Laboratory Results - last 24 hr 01/06/22 01/06/22 01/06/22 12:35 12:35 12:35 WBC 6.18 RBC 4.18 Hgb 12.8 Hct 38.7 MCV 92.6 MCH 30.6 MCHC 33.1 RDW Std Deviation 39.7 RDW Coeff of Abad 11.7 Plt Count 268 MPV 10.4 Immature Gran % (Auto) 0.3 Neut % (Auto) 66.4 Lymph % (Auto) 22.8 [place] % (Auto) 7.6 Eos % (Auto) 2.1 Baso % (Auto) 0.8 Neut # (Auto) 4.10 Lymph # (Auto) 1.41 [place] # (Auto) 0.47 Eos # (Auto) 0.13 Baso # (Auto) 0.05 Immature Gran # (Auto) 0.02 ESR D-Dimer Sodium 138 Potassium 4.1 Chloride 105 Carbon Dioxide 29 Anion Gap 4 BUN 17 Creatinine 0.79 Est Cr Clr Drug Dosing Not Reportable Est GFR ( Amer) 125.8 Est GFR (Non-Af Amer) 108.5 BUN/Creatinine Ratio 21.5 H Glucose 100 H Lactate 0.8 Calcium 9.4 Magnesium 2.1 Total Bilirubin 0.3 Direct Bilirubin 0.0 AST 23 ALT 26 Alkaline Phosphatase 59 Total Creatine Kinase 203 H C-Reactive Protein Total Protein 7.0 Albumin 4.5 Globulin Albumin/Globulin Ratio Lipase 21 Urine Color Urine Appearance Urine pH Ur Specific [place] Urine Protein Urine Glucose (UA) Urine Ketones Urine Blood Urine Nitrite Urine Bilirubin Urine Urobilinogen Ur Leukocyte Esterase Urine Test SARS-CoV-2, RNA, NAAT 01/06/22 01/06/22 01/06/22 12:35 12:35 12:40 WBC RBC Hgb Hct MCV MCH MCHC RDW Std Deviation RDW Coeff of Abad Plt Count MPV Immature Gran % (Auto) Neut % (Auto) Lymph % (Auto) [place] % (Auto) Eos % (Auto) Baso % (Auto) Neut # (Auto) Lymph # (Auto) [place] # (Auto) Eos # (Auto) Baso # (Auto) Immature Gran # (Auto) ESR 8 D-Dimer Sodium Potassium Chloride Carbon Dioxide Anion Gap BUN Creatinine Est Cr Clr Drug Dosing Est GFR ( Amer) Est GFR (Non-Af Amer) BUN/Creatinine Ratio Glucose Lactate Calcium Magnesium Total Bilirubin Direct Bilirubin AST ALT Alkaline Phosphatase Total Creatine Kinase C-Reactive Protein < 0.50 Total Protein Albumin Globulin Albumin/Globulin Ratio Lipase Urine Color Yellow Urine Appearance Clear Urine pH 7.0 Ur Specific [place] 1.026 Urine Protein Negative Urine Glucose (UA) Negative Urine Ketones Negative Urine Blood Negative Urine Nitrite Negative Urine Bilirubin Negative Urine Urobilinogen Negative Ur Leukocyte Esterase Negative Urine Test SARS-CoV-2, RNA, NAAT 01/06/22 01/06/22 01/06/22 12:40 18:20 20:40 WBC RBC Hgb Hct MCV MCH MCHC RDW Std Deviation RDW Coeff of Abad Plt Count MPV Immature Gran % (Auto) Neut % (Auto) Lymph % (Auto) [place] % (Auto) Eos % (Auto) Baso % (Auto) Neut # (Auto) Lymph # (Auto) [place] # (Auto) Eos # (Auto) Baso # (Auto) Immature Gran # (Auto) ESR D-Dimer 240 Sodium Potassium Chloride Carbon Dioxide Anion Gap BUN Creatinine Est Cr Clr Drug Dosing Est GFR ( Amer) Est GFR (Non-Af Amer) BUN/Creatinine Ratio Glucose Lactate Calcium Magnesium Total Bilirubin Direct Bilirubin AST ALT Alkaline Phosphatase Total Creatine Kinase C-Reactive Protein Total Protein Albumin Globulin Albumin/Globulin Ratio Lipase Urine Color Urine Appearance Urine pH Ur Specific [place] Urine Protein Urine Glucose (UA) Urine Ketones Urine Blood Urine Nitrite Urine Bilirubin Urine Urobilinogen Ur Leukocyte Esterase Urine Test Negative SARS-CoV-2, RNA, NAAT NEGATIVE 01/07/22 01/07/22 05:42 05:42 WBC 6.14 RBC 4.02 Hgb 12.5 Hct 37.5 MCV 93.3 MCH 31.1 MCHC 33.3 RDW Std Deviation 39.6 RDW Coeff of Abad 11.6 Plt Count 257 MPV 10.4 Immature Gran % (Auto) Neut % (Auto) Lymph % (Auto) [place] % (Auto) Eos % (Auto) Baso % (Auto) Neut # (Auto) Lymph # (Auto) [place] # (Auto) Eos # (Auto) Baso # (Auto) Immature Gran # (Auto) ESR D-Dimer Sodium 139 Potassium 4.0 Chloride 105 Carbon Dioxide 29 Anion Gap 5 BUN 15 Creatinine 0.81 Est Cr Clr Drug Dosing 100.4 Est GFR ( Amer) 122.0 Est GFR (Non-Af Amer) 105.3 BUN/Creatinine Ratio 18.5 Glucose 93 Lactate Calcium 8.8 Magnesium Total Bilirubin 0.4 Direct Bilirubin AST 17 ALT 19 Alkaline Phosphatase 54 Total Creatine Kinase 120 C-Reactive Protein Total Protein 6.3 Albumin 4.0 Globulin 2.3 L Albumin/Globulin Ratio 1.7 Lipase Urine Color Urine Appearance Urine pH Ur Specific [place] Urine Protein Urine Glucose (UA) Urine Ketones Urine Blood Urine Nitrite Urine Bilirubin Urine Urobilinogen Ur Leukocyte Esterase Urine Test SARS-CoV-2, RNA, NAAT Diagnostic Findings Abdomen/Pelvis CTA 01/06/22 12:28 CT angio abdomen pelvis w con CLINICAL HISTORY: diffuse pain, h/o surg x 4, arterial issues TECHNIQUE: Multidetector row helical CT of the abdomen and pelvis was performed, following intravenous administration of iodinated contrast. No oral contrast was administered. Automated dose lowering techniques and/or adjustment according to patient size were utilized for this exam. Coronal and sagittal reformations were obtained. MIP and 3D volume rendered reconstructions were obtained. CT DOSE: 308.73 mGy.cm Comparison: None available at the time of this dictation. FINDINGS: Lower chest: No acute abnormality Liver: Unremarkable. No focal lesions are seen. Gallbladder and biliary tree: No calcified gallstones. Normal caliber wall. No intra- or extrahepatic biliary ductal dilation. Pancreas: Unremarkable, no focal lesions. Spleen: Unremarkable. Adrenals: Unremarkable. Kidneys and ureters: Focal atrophic changes are seen in the left kidney inferior pole. Bladder: Unremarkable. Reproductive organs: Unremarkable. Bowel: Unremarkable appearance of the bowel. The appendix is normal. Lymph nodes Retroperitoneal: Unremarkable. Pelvic: Unremarkable. Mesenteric: Subcentimeter lymph nodes are noted. Peritoneum: Normal. Abdominal wall: Unremarkable. Bones: Unremarkable. CT angiogram: The abdominal aortic contours appear intact without evidence of aneurysmal dilatation and/or dissection. Surgical clips are seen about the upper abdominal aorta. The origins of the celiac axis, superior mesenteric, inferior mesenteric and bilateral renal arteries are patent. IMPRESSION: 1. Postsurgical changes are seen in the aorta compatible with history of vascular surgery to correct nutcracker syndrome. No acute abnormalities are seen. The great vessels are patent. 2. Chronic changes of left kidney inferior pole atrophy in this patient with history of left renal reimplantation. ACT 112: Negative or not required by law. Electronically signed by: Orlando Merchant M.D. 01/06/2022 2:05 PM PG Care Time/CCT Total # of Minutes Spent Total Time Spent with Patient: Total time spent is greater than 50% in coordination of care (as documented) at patient's floor/unit and/or counseling patient: Coding Level of Care Code 08034 Subseq Hosp Care Lvl 3 Diagnoses Intractable generalized abdominal pain R10.84 Diarrhea R19.7 Nausea alone R11.0 Time Spent (min) 40
[2022-01-07] MEDS: VENLAFAXINE HCL XR 75 MG CAPXR PO SCH (08:50)
--- NOTE | 2022-01-07 10:26 | Billing Data ---
Date of Service January 07, 2022 Coding Level of Care Code INT OBSERVATION CARE 72M LVL 3
--- NOTE | 2022-01-07 11:18 | Gastrointestinal Consultation ---
Date of Consultation January 07, 2022 Assessment & Plan (1) Intractable generalized abdominal pain: I think she has two separate issues here. The pain that led to admission could be related to adhesive disease related to her open surgeries for her two other issues. CT was unremarkable and labs were good so nothing severe was going on at the time. Her other problems sounds suggestive of IBS with diarrhea. It goes along with getting worse after moving here. I would like to start her on bentyl for spasm. This can help with pain related to adhesive disease and IBS. She is feeling well so she can go home when she is ready to go home. I will start diet to be advanced as she would like it. I can see her shortly after discharge as an outpatient. 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 She is from [place] and moved here in September for school. she has a more chronic issue with cramping abdominal pain associated with diarrhea. That was present before she moved here but has gotten worse since she got here. That pain gets better after she empties her bowels. That pain does not wake her from sleep. She sees no blood in her stool. She had an EGD and a colonoscopy two years ago when her other problems were being worked up. The pain that got her to the hospital is more of a sharp/stabbing pain. It usually goes away after 15 minutes to an hour but it lingered yesterday which is why she came in. Today she is better and just needs rest. She is not having much pain now. She denies fevers or chills. She does get nausea on occasion and that is associated with her cramps and diarrhea. Allergies Allergy/AdvReac Type Severity Reaction Status Date / Time iv iron AdvReac Mild Hives Uncoded 01/06/22 21:12 Home Medications Medication Instructions Recorded Confirmed Type penicillin V potassium 500 mg 500 mg PO DAILY 01/06/22 01/06/22 History tablet Patient History Medical History Anemia Endometriosis Median arcuate ligament syndrome Neutropenia Nutcracker phenomenon of renal vein Pelvic congestion syndrome POTS (postural orthostatic tachycardia syndrome) Social History Smoking Status: Never smoker Hx Alcohol Use: Yes Alcohol type: other Hx Substance Use: No Preferred Language: Emir[place] Communication Ability: Effective Net Applications Developer Required: No Beliefs That Will Affect Care: None Current Living Situation: Other Current Living Situation Comment: Lives in dorm on [facility] Other Information That Helps Us Care for You: No Feels Safe at Home: Yes Safety Concerns: Feels Safe At This Time Assistive Devices: None Review of Systems Review of Systems: All systems reviewed & are unremarkable except as noted in HPI & below Physical Exam Constitutional: WD/WN, vitals as above no acute distress Eyes: PERRL, conjunctivae normal, anicteric sclerae ENMT: external ear and nose normal, oropharynx normal Neck: trachea midline, no thyromegaly Respiratory: normal respiratory effort, lungs clear to auscultation Cardiovascular: RRR, no murmur, no edema Gastrointestinal (Abdomen): normal bowel sounds, soft, nontender, no hepatosplenomegaly Musculoskeletal: Extremities: no cyanosis and no clubbing Skin: no rashes, warm and dry Neurologic: PERRL, EOMI, accommodation nl, no face palsy, no dysarthria Psychiatric: Orientation: alert and oriented x 3 Results & Data ([facility]) Vital Signs (Past 12 Hours) Vital Signs Temp Pulse Resp BP Pulse Ox O2 Del Method 01/07/22 07:11 37.1 C 66 16 90/55 L 96 Room Air Laboratory Results 01/07/22 01/07/22 01/06/22 Range/Units 05:42 05:42 20:40 WBC 6.14 (4.8-10.8) K/ul RBC 4.02 (3.93-5.22) M/uL Hgb 12.5 (12.0-16.0) g/dl Hct 37.5 (34.1-44.9) % MCV 93.3 (80.0-100.0) fL MCH 31.1 (25.0-34.0) pg MCHC 33.3 (32.0-36.0) g/dL RDW Std Deviation 39.6 (36.4-46.3) fL RDW Coeff of Abad 11.6 (11.5-14.5) % Plt Count 257 (130-400) K/uL MPV 10.4 (9.4-12.3) fL Immature Gran % (Auto) % Neut % (Auto) % Lymph % (Auto) % [place] % (Auto) % Eos % (Auto) % Baso % (Auto) % Neut # (Auto) (1.4-6.5) K/uL Lymph # (Auto) (1.2-3.4) K/uL [place] # (Auto) (0.24-0.82) K/uL Eos # (Auto) (0-0.50) K/uL Baso # (Auto) (0-0.2) K/uL Immature Gran # (Auto) (0.00-0.02) K/uL ESR (0-20) mm/hr D-Dimer 240 (0-500) ug/L FEU Sodium 139 (136-145) mmol/L Potassium 4.0 (3.5-5.1) mmol/L Chloride 105 (98-107) mmol/L Carbon Dioxide 29 (21-32) mmol/L Anion Gap 5 (3-11) BUN 15 (6-23) mg/dl Creatinine 0.81 (0.6-1.2) mg/dl Est Cr Clr Drug Dosing 100.4 Est GFR ( Amer) 122.0 ml/min Est GFR (Non-Af Amer) 105.3 ml/min BUN/Creatinine Ratio 18.5 (10-20) Glucose 93 (70-99(Fasting)) mg/dl Lactate (0.4-2.0) mmol/L Calcium 8.8 (8.5-10.1) mg/dl Magnesium (1.7-2.4) mg/dl Total Bilirubin 0.4 (0.2-1.0) mg/dl Direct Bilirubin (0-0.2) mg/dl AST 17 (13-39) U/L ALT 19 (7-52) U/L Alkaline Phosphatase 54 (34-104) U/L Total Creatine Kinase 120 (26-192) U/L C-Reactive Protein (0-0.5) mg/dl Total Protein 6.3 (6.0-8.3) gm/dl Albumin 4.0 (3.4-5.0) gm/dl Globulin 2.3 L (2.5-4.0) gm/dl Albumin/Globulin Ratio 1.7 (0.9-2) Lipase (11-82) U/L Urine Color Urine Appearance (Clear) Urine pH (4.5-7.5) Ur Specific [place] (1.000-1.030) Urine Protein (Negative) Urine Glucose (UA) (Negative) Urine Ketones (Negative) Urine Blood (Negative) Urine Nitrite (Negative) Urine Bilirubin (Negative) Urine Urobilinogen (Negative) Ur Leukocyte Esterase (Negative) Urine Test (Negative) SARS-CoV-2, RNA, NAAT (NEGATIVE) 01/06/22 01/06/22 01/06/22 Range/Units 18:20 12:40 12:40 WBC (4.8-10.8) K/ul RBC (3.93-5.22) M/uL Hgb (12.0-16.0) g/dl Hct (34.1-44.9) % MCV (80.0-100.0) fL MCH (25.0-34.0) pg MCHC (32.0-36.0) g/dL RDW Std Deviation (36.4-46.3) fL RDW Coeff of Abad (11.5-14.5) % Plt Count (130-400) K/uL MPV (9.4-12.3) fL Immature Gran % (Auto) % Neut % (Auto) % Lymph % (Auto) % [place] % (Auto) % Eos % (Auto) % Baso % (Auto) % Neut # (Auto) (1.4-6.5) K/uL Lymph # (Auto) (1.2-3.4) K/uL [place] # (Auto) (0.24-0.82) K/uL Eos # (Auto) (0-0.50) K/uL Baso # (Auto) (0-0.2) K/uL Immature Gran # (Auto) (0.00-0.02) K/uL ESR (0-20) mm/hr D-Dimer (0-500) ug/L FEU Sodium (136-145) mmol/L Potassium (3.5-5.1) mmol/L Chloride (98-107) mmol/L Carbon Dioxide (21-32) mmol/L Anion Gap (3-11) BUN (6-23) mg/dl Creatinine (0.6-1.2) mg/dl Est Cr Clr Drug Dosing Est GFR ( Amer) ml/min Est GFR (Non-Af Amer) ml/min BUN/Creatinine Ratio (10-20) Glucose (70-99(Fasting)) mg/dl Lactate (0.4-2.0) mmol/L Calcium (8.5-10.1) mg/dl Magnesium (1.7-2.4) mg/dl Total Bilirubin (0.2-1.0) mg/dl Direct Bilirubin (0-0.2) mg/dl AST (13-39) U/L ALT (7-52) U/L Alkaline Phosphatase (34-104) U/L Total Creatine Kinase (26-192) U/L C-Reactive Protein (0-0.5) mg/dl Total Protein (6.0-8.3) gm/dl Albumin (3.4-5.0) gm/dl Globulin (2.5-4.0) gm/dl Albumin/Globulin Ratio (0.9-2) Lipase (11-82) U/L Urine Color Yellow Urine Appearance Clear (Clear) Urine pH 7.0 (4.5-7.5) Ur Specific [place] 1.026 (1.000-1.030) Urine Protein Negative (Negative) Urine Glucose (UA) Negative (Negative) Urine Ketones Negative (Negative) Urine Blood Negative (Negative) Urine Nitrite Negative (Negative) Urine Bilirubin Negative (Negative) Urine Urobilinogen Negative (Negative) Ur Leukocyte Esterase Negative (Negative) Urine Test Negative (Negative) SARS-CoV-2, RNA, NAAT NEGATIVE (NEGATIVE) 01/06/22 01/06/22 01/06/22 Range/Units 12:35 12:35 12:35 WBC (4.8-10.8) K/ul RBC (3.93-5.22) M/uL Hgb (12.0-16.0) g/dl Hct (34.1-44.9) % MCV (80.0-100.0) fL MCH (25.0-34.0) pg MCHC (32.0-36.0) g/dL RDW Std Deviation (36.4-46.3) fL RDW Coeff of Abad (11.5-14.5) % Plt Count (130-400) K/uL MPV (9.4-12.3) fL Immature Gran % (Auto) % Neut % (Auto) % Lymph % (Auto) % [place] % (Auto) % Eos % (Auto) % Baso % (Auto) % Neut # (Auto) (1.4-6.5) K/uL Lymph # (Auto) (1.2-3.4) K/uL [place] # (Auto) (0.24-0.82) K/uL Eos # (Auto) (0-0.50) K/uL Baso # (Auto) (0-0.2) K/uL Immature Gran # (Auto) (0.00-0.02) K/uL ESR 8 (0-20) mm/hr D-Dimer (0-500) ug/L FEU Sodium (136-145) mmol/L Potassium (3.5-5.1) mmol/L Chloride (98-107) mmol/L Carbon Dioxide (21-32) mmol/L Anion Gap (3-11) BUN (6-23) mg/dl Creatinine (0.6-1.2) mg/dl Est Cr Clr Drug Dosing Est GFR ( Amer) ml/min Est GFR (Non-Af Amer) ml/min BUN/Creatinine Ratio (10-20) Glucose (70-99(Fasting)) mg/dl Lactate 0.8 (0.4-2.0) mmol/L Calcium (8.5-10.1) mg/dl Magnesium (1.7-2.4) mg/dl Total Bilirubin (0.2-1.0) mg/dl Direct Bilirubin (0-0.2) mg/dl AST (13-39) U/L ALT (7-52) U/L Alkaline Phosphatase (34-104) U/L Total Creatine Kinase (26-192) U/L C-Reactive Protein < 0.50 (0-0.5) mg/dl Total Protein (6.0-8.3) gm/dl Albumin (3.4-5.0) gm/dl Globulin (2.5-4.0) gm/dl Albumin/Globulin Ratio (0.9-2) Lipase (11-82) U/L Urine Color Urine Appearance (Clear) Urine pH (4.5-7.5) Ur Specific [place] (1.000-1.030) Urine Protein (Negative) Urine Glucose (UA) (Negative) Urine Ketones (Negative) Urine Blood (Negative) Urine Nitrite (Negative) Urine Bilirubin (Negative) Urine Urobilinogen (Negative) Ur Leukocyte Esterase (Negative) Urine Test (Negative) SARS-CoV-2, RNA, NAAT (NEGATIVE) 01/06/22 01/06/22 Range/Units 12:35 12:35 WBC 6.18 (4.8-10.8) K/ul RBC 4.18 (3.93-5.22) M/uL Hgb 12.8 (12.0-16.0) g/dl Hct 38.7 (34.1-44.9) % MCV 92.6 (80.0-100.0) fL MCH 30.6 (25.0-34.0) pg MCHC 33.1 (32.0-36.0) g/dL RDW Std Deviation 39.7 (36.4-46.3) fL RDW Coeff of Abad 11.7 (11.5-14.5) % Plt Count 268 (130-400) K/uL MPV 10.4 (9.4-12.3) fL Immature Gran % (Auto) 0.3 % Neut % (Auto) 66.4 % Lymph % (Auto) 22.8 % [place] % (Auto) 7.6 % Eos % (Auto) 2.1 % Baso % (Auto) 0.8 % Neut # (Auto) 4.10 (1.4-6.5) K/uL Lymph # (Auto) 1.41 (1.2-3.4) K/uL [place] # (Auto) 0.47 (0.24-0.82) K/uL Eos # (Auto) 0.13 (0-0.50) K/uL Baso # (Auto) 0.05 (0-0.2) K/uL Immature Gran # (Auto) 0.02 (0.00-0.02) K/uL ESR (0-20) mm/hr D-Dimer (0-500) ug/L FEU Sodium 138 (136-145) mmol/L Potassium 4.1 (3.5-5.1) mmol/L Chloride 105 (98-107) mmol/L Carbon Dioxide 29 (21-32) mmol/L Anion Gap 4 (3-11) BUN 17 (6-23) mg/dl Creatinine 0.79 (0.6-1.2) mg/dl Est Cr Clr Drug Dosing Not Reportable Est GFR ( Amer) 125.8 ml/min Est GFR (Non-Af Amer) 108.5 ml/min BUN/Creatinine Ratio 21.5 H (10-20) Glucose 100 H (70-99(Fasting)) mg/dl Lactate (0.4-2.0) mmol/L Calcium 9.4 (8.5-10.1) mg/dl Magnesium 2.1 (1.7-2.4) mg/dl Total Bilirubin 0.3 (0.2-1.0) mg/dl Direct Bilirubin 0.0 (0-0.2) mg/dl AST 23 (13-39) U/L ALT 26 (7-52) U/L Alkaline Phosphatase 59 (34-104) U/L Total Creatine Kinase 203 H (26-192) U/L C-Reactive Protein (0-0.5) mg/dl Total Protein 7.0 (6.0-8.3) gm/dl Albumin 4.5 (3.4-5.0) gm/dl Globulin (2.5-4.0) gm/dl Albumin/Globulin Ratio (0.9-2) Lipase 21 (11-82) U/L Urine Color Urine Appearance (Clear) Urine pH (4.5-7.5) Ur Specific [place] (1.000-1.030) Urine Protein (Negative) Urine Glucose (UA) (Negative) Urine Ketones (Negative) Urine Blood (Negative) Urine Nitrite (Negative) Urine Bilirubin (Negative) Urine Urobilinogen (Negative) Ur Leukocyte Esterase (Negative) Urine Test (Negative) SARS-CoV-2, RNA, NAAT (NEGATIVE) Diagnostic Findings Abdomen/Pelvis CTA 01/06/22 12:28 CT angio abdomen pelvis w con CLINICAL HISTORY: diffuse pain, h/o surg x 4, arterial issues TECHNIQUE: Multidetector row helical CT of the abdomen and pelvis was performed, following intravenous administration of iodinated contrast. No oral contrast was administered. Automated dose lowering techniques and/or adjustment according to patient size were utilized for this exam. Coronal and sagittal reformations were obtained. MIP and 3D volume rendered reconstructions were obtained. CT DOSE: 308.73 mGy.cm Comparison: None available at the time of this dictation. FINDINGS: Lower chest: No acute abnormality Liver: Unremarkable. No focal lesions are seen. Gallbladder and biliary tree: No calcified gallstones. Normal caliber wall. No intra- or extrahepatic biliary ductal dilation. Pancreas: Unremarkable, no focal lesions. Spleen: Unremarkable. Adrenals: Unremarkable. Kidneys and ureters: Focal atrophic changes are seen in the left kidney inferior pole. Bladder: Unremarkable. Reproductive organs: Unremarkable. Bowel: Unremarkable appearance of the bowel. The appendix is normal. Lymph nodes Retroperitoneal: Unremarkable. Pelvic: Unremarkable. Mesenteric: Subcentimeter lymph nodes are noted. Peritoneum: Normal. Abdominal wall: Unremarkable. Bones: Unremarkable. CT angiogram: The abdominal aortic contours appear intact without evidence of aneurysmal dilatation and/or dissection. Surgical clips are seen about the upper abdominal aorta. The origins of the celiac axis, superior mesenteric, inferior mesenteric and bilateral renal arteries are patent. IMPRESSION: 1. Postsurgical changes are seen in the aorta compatible with history of vascular surgery to correct nutcracker syndrome. No acute abnormalities are seen. The great vessels are patent. 2. Chronic changes of left kidney inferior pole atrophy in this patient with history of left renal reimplantation. ACT 112: Negative or not required by law. Electronically signed by: Orlando Merchant M.D. 01/06/2022 2:05 PM
[2022-01-07] MEDS: DICYCLOMINE HCL 10 MG CAP PO SCH ×3 (12:04→21:31)
--- NOTE | 2022-01-07 13:47 | Ultrasound Report ---
ABDOMINAL ULTRASOUND, RIGHT UPPER QUADRANT HISTORY: Right upper quadrant pain. gallbladder r/o gallstones for HIDA scan. COMPARISON: Abdomen and pelvis CTA 01/06/2022. FINDINGS: Pancreas: The visualized pancreas demonstrates a normal echotexture. Liver: Unremarkable. Gallbladder: No gallbladder wall thickening. No gallstones. CBD: 3 mm. Right kidney: No hydronephrosis. IMPRESSION: Normal gallbladder. No gallstones. ACT 112: Negative or not required by law. Electronically signed by: Mohan Gonsalez M.D. 01/07/2022 1:46 PM
[2022-01-07] MEDS: HYDROmorphone INJ 0.5 MG/0.5 ML SYR IV PRN (16:34)
[2022-01-08] MEDS: PROCHLORPERAZINE MALEATE 5 MG TAB PO SCH ×3 (05:34→17:36)
[2022-01-08] MEDS: DICYCLOMINE HCL 10 MG CAP PO SCH ×3 (05:35→17:36)
[2022-01-08] MEDS: VENLAFAXINE HCL XR 75 MG CAPXR PO SCH (05:35)
--- NOTE | 2022-01-08 08:15 | Hospitalist Progress Note ---
Date of Service January 08, 2022 Assessment & Plan (1) Intractable generalized abdominal pain: Plan: - Possibly may have adhesive disease secondary to multiple abdominal surgeries along with a component of IBS-D - Patient's surgeon in [place] suggested a HIDA (U/S RUQ was normal) - Continue low fat diet after HIDA - Currently NPO for 6 hours prior to U/S RUQ with HIDA today - Continue Bentyl 10mg before meals and at night (2) Diarrhea: Plan: - Patient likely has a component of IBS-D - GI ordered a trial of Bentyl - Monitor Bowels, if having frequent diarrhea could get stool studies (per patient no BM since admission) (3) Nausea alone: Plan: - Zofran as needed Admission and Anticipated Discharge Date Admission Date: January 06, 2022 Subjective 21yo Female with PMH Nutcracker syndrome, POTS, endometriosis and hx of multiple abdominal surgeries who presented with abdominal pain, nausea and diarrhea x 2 months. GI evaluated recommended Bentyl 10 mg q ac and hs. Patient was started on clears yesterday and advanced to a low fat diet. She is currently NPO for the HIDA scan later today Patient states she tolerated the diet yesterday with only some slight nausea that she felt was from the pain medications and not the food. She tells me she is feeling much better today and her mother is on her way from the [place] to see her later today and she is happy to be able to see her mother. She has not had any diarrhea or any bowel movement since admission. Review of Systems Review of Systems: All ROS negative unless stated otherwise in the History Physical Exam Constitutional: WD/WN, vitals as above Eyes: PERRL, conjunctivae normal, anicteric sclerae ENMT: external ear and nose normal, oropharynx normal Neck: trachea midline, no thyromegaly Respiratory: normal respiratory effort, lungs clear to auscultation Cardiovascular: RRR, no murmur, no edema Gastrointestinal (Abdomen): [] Neurologic: PERRL, EOMI, accommodation nl, no face palsy, no dysarthria Psychiatric: A+Ox3, euthymic affect Results & Data Results & Data ([facility]) Vital Signs (Past 12 Hours) Vital Signs Temp Pulse Resp BP Pulse Ox 01/07/22 21:49 36.6 C 80 18 113/67 94 Diagnostic Findings Abdomen Ultrasound 01/07/22 11:08 ABDOMINAL ULTRASOUND, RIGHT UPPER QUADRANT HISTORY: Right upper quadrant pain. gallbladder r/o gallstones for HIDA scan. COMPARISON: Abdomen and pelvis CTA 01/06/2022. FINDINGS: Pancreas: The visualized pancreas demonstrates a normal echotexture. Liver: Unremarkable. Gallbladder: No gallbladder wall thickening. No gallstones. CBD: 3 mm. Right kidney: No hydronephrosis. IMPRESSION: Normal gallbladder. No gallstones. ACT 112: Negative or not required by law. Electronically signed by: Mohan Gonsalez M.D. 01/07/2022 1:46 PM PG Care Time/CCT Total # of Minutes Spent Total Time Spent with Patient: Total time spent is greater than 50% in coordination of care (as documented) at patient's floor/unit and/or counseling patient: Coding Diagnoses Intractable generalized abdominal pain R10.84 Diarrhea R19.7 Nausea alone R11.0
[2022-01-08] MEDS ORDERED: SINCALIDE IV STA (13:58)
[2022-01-08] MEDS ORDERED: SODIUM CHLORIDE 0.9% IV STA (13:58)
--- NOTE | 2022-01-08 14:54 | Discharge Summary ---
Date of Service January 08, 2022 Admission HPI Per Admitting Provider 21yo Female with PMH Nutcracker syndrome s/p surgeryx4, median arcuate ligament syndrome, endometriosis, pelvic and ovarian congestion (improved after nutcracker surgery), POTS, anemia, and neutropenia (CBC here normal) complained of worsening abd pain nausea and diarrhea x 2 months. Patient is from [facility], follows with her P[facility] in [facility] and surgeon in [place]. She states 1 to 2 months ago her symptoms began and have been gradually worsening. She cannot recall any inciting event, illness, injury or medication change. She does admit that her symptoms began shortly after coming to [facility]. Patient is a freshman here at [employer]. Her abdominal pain comes and goes throughout the day, described as sharp stabbing pain worse when standing up, sometimes makes it painful to breath. Describes sometimes fatty food makes her pain worse and sometimes it does not. She states that she was having up to 6 loose Bowel movements daily. She denies any hematochezia, melena or bright red blood per rectum. The stool was loose and brown. Patient has had irregular periods for quite a while now. Her last surgery was last year December for her Nutcracker surgery. She states her current pain feels similar to previous pain which improved after surgery. 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 States her appetite comes and goes, denies any difficulty controlling bowels, no loss of strength or sensation, no fever or swelling noted. 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 Patient's chronic medications include venlafaxin, zofran and compazine PRN for nausea, nausea patches, and PRN ibuprofen. Denies smoking. Drinks alcohol 1-2 drinks per month, coffee 1-2 cups daily, denies illicit drugs. Admission Exam Per Admitting Provider Constitutional: WD/WN, vitals as above Eyes: PERRL, conjunctivae normal, anicteric sclerae Neck: trachea midline, no thyromegaly Respiratory: normal respiratory effort, lungs clear to auscultation Cardiovascular: RRR, no murmur, no edema Chest (Breasts): Chest: normal inspection of chest Gastrointestinal (Abdomen): Inspection/Auscultation: abdomen normal to inspection and + abdominal surgical scar Percussion/Palpation: + abdomen tender (at umbilicus and LLQ) Skin: no rashes, warm and dry Principal Diagnosis abdominal pain IBS-C Nausea Discharge Exam Constitutional WD/WN, vitals as above Eyes PERRL, conjunctivae normal, anicteric sclerae ENMT external ear and nose normal, oropharynx normal Neck trachea midline, no thyromegaly Respiratory normal respiratory effort, lungs clear to auscultation Cardiovascular RRR, no murmur, no edema Gastrointestinal (Abdomen) normal bowel sounds, soft, nontender, no hepatosplenomegaly Musculoskeletal no cyanosis or clubbing, extremities motor strength 5/5 Skin no rashes, warm and dry Neurologic PERRL, EOMI, accommodation nl, no face palsy, no dysarthria Psychiatric A+Ox3, euthymic affect Discharge Data Allergies Allergy/AdvReac Type Severity Reaction Status Date / Time iv iron AdvReac Mild Hives Uncoded 01/06/22 21:12 Consultations 01/06/22 18:08 ED Decision to Admit Stat 01/06/22 19:53 Consult Gastroenterology Routine Ordered Studies 01/06/22 12:28 CT angio abdomen pelvis w con Stat CT angio abdomen pelvis w con CLINICAL HISTORY: diffuse pain, h/o surg x 4, arterial issues TECHNIQUE: Multidetector row helical CT of the abdomen and pelvis was performed, following intravenous administration of iodinated contrast. No oral contrast was administered. Automated dose lowering techniques and/or adjustment according to patient size were utilized for this exam. Coronal and sagittal reformations were obtained. MIP and 3D volume rendered reconstructions were obtained. CT DOSE: 308.73 mGy.cm Comparison: None available at the time of this dictation. FINDINGS: Lower chest: No acute abnormality Liver: Unremarkable. No focal lesions are seen. Gallbladder and biliary tree: No calcified gallstones. Normal caliber wall. No intra- or extrahepatic biliary ductal dilation. Pancreas: Unremarkable, no focal lesions. Spleen: Unremarkable. Adrenals: Unremarkable. Kidneys and ureters: Focal atrophic changes are seen in the left kidney inferior pole. Bladder: Unremarkable. Reproductive organs: Unremarkable. Bowel: Unremarkable appearance of the bowel. The appendix is normal. Lymph nodes Retroperitoneal: Unremarkable. Pelvic: Unremarkable. Mesenteric: Subcentimeter lymph nodes are noted. Peritoneum: Normal. Abdominal wall: Unremarkable. Bones: Unremarkable. CT angiogram: The abdominal aortic contours appear intact without evidence of aneurysmal dilatation and/or dissection. Surgical clips are seen about the u pper abdominal aorta. The origins of the celiac axis, superior mesenteric, inferior mesenteric and bilateral renal arteries are patent. IMPRESSION: 1. Postsurgical changes are seen in the aorta compatible with history of vascular surgery to correct nutcracker syndrome. No acute abnormalities are seen. The great vessels are patent. 2. Chronic changes of left kidney inferior pole atrophy in this patient with history of left renal reimplantation. 01/07/22 11:08 US abdomen limited Routine Abdomen Ultrasound 01/07/22 11:08 ABDOMINAL ULTRASOUND, RIGHT UPPER QUADRANT HISTORY: Right upper quadrant pain. gallbladder r/o gallstones for HIDA scan. COMPARISON: Abdomen and pelvis CTA 01/06/2022. FINDINGS: Pancreas: The visualized pancreas demonstrates a normal echotexture. Liver: Unremarkable. Gallbladder: No gallbladder wall thickening. No gallstones. CBD: 3 mm. Right kidney: No hydronephrosis. IMPRESSION: Normal gallbladder. No gallstones. ACT 112: Negative or not required by law. Electronically signed by: Mohan Gonsalez M.D. 01/07/2022 1:46 PM Hepatobiliary Scan Nuclear Medicine 01/08/22 13:00 NM hepatobiliary EF CLINICAL HISTORY: Abdominal pain and intolerance to fatty foods. COMPARISON STUDY: CTA of the abdomen and pelvis January 06, 2022 and right upper quadrant ultrasound January 07, 2022. TECHNIQUE: 5.1 mCi of technetium 99m Choletec was injected IV at 1:10 PM on January 08, 2022. Imaging of the abdomen was carried out for 60 minutes. At this time, 1.33 mcg of sincalide was injected IV as per protocol and imaging of the abdomen was carried out for an additional 45 minutes to estimate gallbladder ejection fraction. FINDINGS: Hepatic uptake of radiotracer is prompt and homogeneous. Activity is identified within the gallbladder and common bile duct at 10 minutes. Small bowel activity is noted at 15 minutes. Following injection of sincalide, there was normal gallbladder emptying with an ejection fraction of 50%. Normal is greater than 30-35%. IMPRESSION: 1. Normal hepatobiliary scan. No evidence for acute or chronic cholecystitis. 2. Normal gallbladder ejection fraction of 50%. ACT 112: Negative or not required by law. Electronically signed by: Shay Riddle M.D. 01/08/2022 3:51 PM Hospital Course (1) Intractable generalized abdominal pain: - Possibly may have adhesive disease secondary to multiple abdominal surgeries along with a component of IBS-D - CTA of abdomen and pelvis no acute abnormalities were seen and the great vessels are patent - U/S RUQ normal - HIDA normal with a EF of 50% - Continue low fat diet - Continue Bentyl 10mg before meals and at night - Can follow up with GI as outpatient at [facility] (2) Diarrhea: - Patient likely has a component of IBS-D - GI ordered a trial of Bentyl (3) Nausea alone: - Improved Total Time Total Time Spent Total Time Spent (In Minutes): 45 Discharge Plan Discharge Items Patient Disposition: Home - Self-Care Reason For Visit: ABD PAIN Discharge Diagnosis: IBS-D Activity: Resume your previous activity Exercise/Sports: Gradually increase as tolerated Driving/Machine Use: Resume 1 day after discharge Weightbearing: Full weightbearing Non-emergency contact: Primary Care Provider Call non-emergency contact if: you have any medication questions, your pain is not controlled, your pain is worsening and your pain is concerning for you Follow-up/Referrals: [facility] [Primary Care Provider] - Diet: Low Fat Addtl Attending Provider Instructions: You were admitted with abdominal pain, nausea and diarrhea. You had a CTA of your abdomen that revealed no acute changes and the great vessels were patent. These results were reviewed with your surgeon in [place]. He also recommended that we check a HIDA scan. You also had a U/S that was also normal and revealed a normal gallbladder with no stones. This was ordered before the HIDA to be sure that you had no gall stones. Your HIDA scan was the test to check the function of your gallbladder that revealed no evidence of acute or chronic cholecystitis and the gall blader appears to be functioning and candice well at 50% (over 35% is consider a normal result) Gastroenterology was consulted and they felt your abdominal pain may have been secondary to possible adhesive disease secondary to your history of multiple abdominal surgeries. They also felt your diarrhea and pain was likely due to Irritable Bowel Syndrome and they started you on Bentyl 10mg to one before meals and at night. Your diet was slowly increased from clear liquids to a low fat diet. The GI physician Dr Rand stated that he is able to see you as an out patient at [facility]. Recommend to continue to follow a low fat diet. Discussed to avoid any foods that seem to increase your pain or diarrhea. Recommend to continue Bentyl 10mg one before meals and one before bed if needed. Pending Studies at Discharge: No Stand-Alone Forms: My [facility] Medications and DC Order Prescriptions: New venlafaxine 75 mg Capsule,Extended Release 24hr 75 mg PO QAM Qty: 0 0RF dicyclomine 10 mg Capsule 10 mg PO ACHS Qty: 60 0RF Continued penicillin V potassium 500 mg tablet 500 mg PO DAILY Discharge Orders: Discharge Order (Routine); Ordered 01/08/22 Ordered By: Fátima Falcon/Other Patient Handouts: Abdominal Pain, IBS Irritable Bowel Syndrome, IBS Diet Lifestyle Tips Admission Data Admit Date/Time: 01/06/22 18:39 Attending Provider: Eladio Abarca Admit Provider: Caitlin Lott Primary Care Provider: [facility] Other Providers: Joshua Chao ; Julia Rand Jr Other Interventions: Discharge Summary Assessment (RN) Last Done: 01/08/22 16:33 Supervising Physician Co-Signing Physician Notes Patient seen and examined at bedside. During face to face encounter, I obtained a summary of hospital stay and brief physical examination. I reviewed above note and agree with it. I discussed plan of care with patient and TITA Castañeda. Patient admitted with GI pain. Workup indicated no acute pathology. Patient will have followup with [facility] GI outpatient clinic. Coding Level of Care Code Established Pt OBSERV/HOSP SAME DATE LVL 2 Patient Type Established Medical Decision Making Moderate Complexity Diagnoses Intractable generalized abdominal pain R10.84 Diarrhea R19.7 Nausea alone R11.0 Time Spent (min) 45
--- NOTE | 2022-01-08 15:14 | Gastroenterology Progress Note ---
Date of Service January 08, 2022 Assessment & Plan (1) Intractable generalized abdominal pain: Plan: Her pain does not sound biliary to me. Interpreting a positive HIDA will be difficult. From the images she has good filling of the gallbladder and emptying into the intestine. I just don't know how long that took or what per cent of emptying there was. I would continue dicyclomine. If she goes home I can see her in follow up at [facility] (2) Diarrhea: (3) Vomiting: Admission and Anticipated Discharge Date Admission Date: January 06, 2022 Subjective Patient not in room, must be getting HIDA scan. From reading chart she seems to be doing okay Results & Data ([facility]) Vital Signs (Past 12 Hours) Vital Signs Temp Pulse Resp BP Pulse Ox O2 Del Method 01/08/22 09:35 Room Air 01/08/22 08:27 36.9 C 66 16 105/64 93 Room Air (1) Vomiting Nausea presence: with nausea Vomiting type: unspecified Qualified Code(s): R11.2 - Nausea with vomiting, unspecified
[2022-01-08 15:35] VITALS: BP 124/74; TEMP 98.1; O2SAT 97
--- NOTE | 2022-01-08 15:52 | Nuclear Medicine Report ---
NM hepatobiliary EF CLINICAL HISTORY: Abdominal pain and intolerance to fatty foods. COMPARISON STUDY: CTA of the abdomen and pelvis January 06, 2022 and right upper quadrant ultrasound January 07, 2022. TECHNIQUE: 5.1 mCi of technetium 99m Choletec was injected IV at 1:10 PM on January 08, 2022. Imaging of the abdomen was carried out for 60 minutes. At this time, 1.33 mcg of sincalide was injected IV a s per protocol and imaging of the abdomen was carried out for an additional 45 minutes to estimate ga llbladder ejection fraction. FINDINGS: Hepatic uptake of radiotracer is prompt and homogeneous. Activity is identified within the gallbladder and common bile duct at 10 minutes. Small bowel activity is noted at 15 minutes. Followin g injection of sincalide, there was normal gallbladder emptying with an ejection fraction of 50%. Nor mal is greater than 30-35%. IMPRESSION: 1. Normal hepatobiliary scan. No evidence for acute or chronic cholecystitis. 2. Normal gallbladder ejection fraction of 50%. ACT 112: Negative or not required by law. Electronically signed by: Shay Riddle M.D. 01/08/2022 3:51 PM
[2022-01-08 16:34] VITALS: PULSE 68
[2022-01-09] MEDS ORDERED: PENICILLIN V POTASSIUM 500 MG TAB PO SCH (09:00)
== END 2022-01-08 17:42 | disposition home or self-care (01) ==
LOC: 3N 11:50 → ED 11:50 → SUATTDRO 18:39 → 3N 19:52
DX: Z88.8 Allergy status to other drugs, medicaments and biological substances; R11.0 Nausea; K58.0 Irritable bowel syndrome with diarrhea; R10.84 Generalized abdominal pain; N26.1 Atrophy of kidney (terminal)